=== PATIENT | male | born 1985 | race African-American/Black ===

== ENCOUNTER 2023-11-14 22:19 | Emergency (ER) | payer SELFPAY ==
[~2023-11-14] VITALS: Ht 177.8 cm; Wt 72.6 kg
[2023-11-14] MEDS ORDERED: PERM60CR4 TP (23:38)
[2023-11-15] VITALS: BP 112/78; TEMP 98; O2SAT 98
== END 2023-11-15 00:01 | disposition home or self-care (01) ==
LOC: ER 22:27
DX: B85.0 Pediculosis due to Pediculus humanus capitis (principal); Z79.899 Other long term (current) drug therapy
CPT/HCPCS: A4606; A4663

== ENCOUNTER 2023-11-16 00:54 | Emergency (ER) | payer SELFPAY ==
[~2023-11-16] VITALS: Ht 177.8 cm; Wt 72.6 kg
[~2023-11-16 00:54] MED LIST: PERM60CR4 TP
[2023-11-16 05:40] VITALS: BP 142/83; TEMP 97.7; O2SAT 98
== END 2023-11-16 05:00 | disposition home or self-care (01) ==
LOC: ER 01:04
DX: F22 Delusional disorders (principal); R03.0 Elevated blood-pressure reading, without diagnosis of hypertension; L21.0 Seborrhea capitis; Z98.890 Other specified postprocedural states; Z79.899 Other long term (current) drug therapy
CPT/HCPCS: A4606; A4663

== ENCOUNTER 2023-11-30 12:57 | Emergency (ER) | payer SELFPAY ==
[~2023-11-30] VITALS: Ht 177.8 cm; Wt 72.6 kg
[2023-11-30 13:10] VITALS: O2SAT 99
== END 2023-11-30 15:13 | disposition left against medical advice (07) ==
LOC: ER 12:57
DX: H92.09 Otalgia, unspecified ear (principal); Z98.890 Other specified postprocedural states; Z79.899 Other long term (current) drug therapy; Z53.21 Procedure and treatment not carried out due to patient leaving prior to being seen by health care provider
CPT/HCPCS: A4606; A4663